=== PATIENT | male | born 1950 | race Hispanic/Latino ===

== ENCOUNTER 2018-05-25 08:28 | Day surgery (SDC) | payer MEDICARE ==
[~2018-05-25 08:28] MED LIST: ANCEF/STERILE WATER 2 GM/20 ML 2 GM/20 ML SYRINGE IV NR
[2018-05-25 10:20] LABS: Eosinophils # (Auto) 0.1 K/mm3 (0.0-0.4); Eosinophils % (Auto) 0.9 % (0.0-4.3); Monocytes # (Auto) 0.4 K/mm3 (0.0-0.8); Monocytes % (Auto) 5.6 % (0.0-7.3)
[2018-05-25 10:31] LABS: INR 0.92 (0.87-1.13); Partial Thromboplastin Time 24.6 Sec. (24.2-36.6)
[2018-05-25 10:40] LABS: BUN/Creatinine Ratio 15; Blood Urea Nitrogen 17 mg/dL (9-20); Hemolysis Index 0
[2018-05-25 10:58] LABS: Basophils % (Auto) 0.7 % (0.0-1.8); Hematocrit 42.9 % (35.5-45.6); Hemoglobin 14.7 gm/dl (11.8-15.2); Lymphocytes # (Auto) 1.3 K/mm3 (1.2-5.4); Lymphocytes % (Auto) 16.9 % (13.4-35.0); Mean Corpuscular HGB Conc 34 % (32-34); Mean Corpuscular Hemoglobin 32 pg (28-32); Mean Corpuscular Volume 93 fl (84-94); Platelet Count 209 K/mm3 (140-440); Red Blood Count 4.61 M/mm3 (3.65-5.03)
[2018-05-25] MEDS: NACL 0.9% 1000 ML 1,000 ML IV SCH ×2 (11:27→12:10)
[2018-05-25] MEDS ORDERED: HEPARIN/NS 5000 UNIT/500ML(CATH LAB) 1,000 ML IR ONE (12:05)
[2018-05-25] MEDS ORDERED: ANCEF/STERILE WATER 2 GM/20 ML 2 GM/20 ML SYRINGE IV ONE (12:06)
[2018-05-25] MEDS ORDERED: XYLOCAINE 2% INFILTRATI ONE (12:06)
[2018-05-25] MEDS: VERSED ONE ×4 (12:15→13:11)
[2018-05-25] MEDS: SUBLIMAZE ONE ×7 (12:15→14:19)
[2018-05-25] MEDS: APRESOLINE ONE ×3 (12:20→14:13)
[2018-05-25] MEDS: HEPARIN 10,000 UNITS/10 ML ONE ×2 (13:20→14:05)
[2018-05-25] MEDS ORDERED: NACL 0.9% 1000 ML 1,000 ML ONE (13:28)
[2018-05-25] MEDS ORDERED: NITROGLYCERIN SYRINGE 3 ML ONE ×2 (13:33→14:21)
[2018-05-25] MEDS: BENADRYL ONE ×2 (14:05→14:09)
[2018-05-25] MEDS ORDERED: VERSED ONE (14:27)
[2018-05-25] MEDS ORDERED: SUBLIMAZE ONE (14:27)
--- NOTE | 2018-05-25 14:59 | Short Stay Summary ---
Short Stay Documentation Date of service: 05/25/18 Narrative H&P: See H&P - History H&P: obtained from office - Allergies and Medications Current Medications: Allergies No Known Allergies Allergy (Unverified 05/25/18 08:29) Home Medications Medication Instructions Recorded Confirmed Last Taken Type Clopidogrel Bisulfate [Clopidogrel] 75 mg PO DAILY 05/25/18 05/25/18 05/25/18 History Oxycodone HCl/Acetaminophen 1 each PO Q6HR PRN 05/25/18 05/25/18 05/24/18 History [Percocet 7.5/325 mg] Valsartan [Diovan] 160 mg PO DAILY 05/25/18 05/25/18 05/23/18 History Active Medications Cefazolin Sodium (Ancef/Sterile Water 2 Gm/20 Ml) 2 gm in 20 mls @ 80 mls/hr IV PREOP NR; Protocol Stop: 05/25/18 23:59 Last Admin: 05/25/18 12:15 Dose: 20 mls Sodium Chloride (Nacl 0.9% 1000 Ml) 1,000 mls @ 42 mls/hr IV DIRECT MUSTAPHA Last Admin: 05/25/18 12:10 Dose: 42 mls/hr - Brief post op/procedure progress note Date of procedure: 05/25/18 Pre-op diagnosis: PVD with Left Lower Extremity Ulceration Post-op diagnosis: same Procedure: 1. Ultrasound-Guided Antegrade Access Left Common Femoral Artery 2. Ultrasound-guided Retrograde Access Left Posterior Tibial Artery 3. Diagnostic Left Lower Extremity Arteriogram (No Previous Films for Comparison) 4. Atherectomy with Angioplasty of Left SFA and Popliteal Artery with 2.4/3.4 JetStream Atherectomy Catheter and 6 x 150 Lutonix Drug-Coated Balloon in the SFA and 5 x 150 Lutonix Drug-Coated Balloon in the Popliteal Artery 5. Atherectomy with Angioplasty of the Left Anterior Tibial Artery with 2.4/ 3.4 JetStream Atherectomy Catheter and 4 x 80 Lutonix Drug-Coated Balloon and 3 x 220 Balloon 6. Closure of Left Femoral Arteriotomy with 6 Greek Angio-Seal 7. Radiologic Supervision with Interpretation Anesthesia: local, other (IV sedation) Surgeon: EMMY LUNA Estimated blood loss: minimal Pathology: none Condition: stable - Disposition Condition at discharge: Good Disposition: [id number] TO HOME OR SELFCARE Short Stay Discharge Plan Activity: other (no strenuous activity for 24 hours) Wound: remove dressing (24 hours) Follow up with: EMMY LUAN MD [Staff Physician] - 14 Days Prescriptions: Aspirin EC [Aspirin Enteric Coated TAB] 81 mg PO QDAY #90 tablet. Valsartan [Diovan] 160 mg PO DAILY #90 tablet
--- NOTE | 2018-05-25 15:03 | Operative Report ---
Operative Report Operative Report: Date of Procedure: 05/25/2018 Pre-operative Diagnosis: Left Lower Extremity PVD with Ulceration Post-operative Diagnosis: Same Procedure(s): 1. Ultrasound-Guided Antegrade Access Left Common Femoral Artery 2. Ultrasound-guided Retrograde Access Left Posterior Tibial Artery 3. Diagnostic Left Lower Extremity Arteriogram (No Previous Films for Comparison) 4. Atherectomy with Angioplasty of Left SFA and Popliteal Artery with 2.4/3.4 JetStream Atherectomy Catheter and 6 x 150 Lutonix Drug-Coated Balloon in the SFA and 5 x 150 Lutonix Drug-Coated Balloon in the Popliteal Artery 5. Atherectomy with Angioplasty of the Left Anterior Tibial Artery with 2.4/ 3.4 JetStream Atherectomy Catheter and 4 x 80 Lutonix Drug-Coated Balloon and 3 x 220 Balloon 6. Closure of Left Femoral Arteriotomy with 6 [place] Angio-Seal 7. Radiologic Supervision with Interpretation Surgeon: Juan Alberto Gastelum M.D. Continuous Wave Operator: None Anesthesia: Local and IV Sedation EBL: Minimal Counts: Correct Complications: None Condition: Stable Specimen: None Indication: The patient is a 68-year-old male with a history of peripheral vascular disease and a right above-knee amputation. He has had a previous intervention of the left lower extremity and presented to the office with complaints of left lower extremity rest pain as well as a nonhealing ulcer of the left anterior pre- tibial area. He is in need of a diagnostic left lower extremity arteriogram with possible intervention. He was given the risks, benefits, and alternative procedures and consented to the procedure. Angiographic Findings: The left common femoral artery appeared widely patent. The left profunda appeared widely patent. The SFA was diffusely diseased with multiple segments of stenosis very from 30-70%. The popliteal artery was diffusely diseased with multiple segments of stenosis very from 40-60%. The anterior tibial artery was patent at its origin however there was approximately 50% of a 3 cm segment just distal to the origin. There was fair and degrees of stenosis throughout the remainder of the artery and the dorsalis pedis artery occluded in the mid foot however collateral did perfuse remainder of the foot. The tibioperoneal trunk was occluded however the peroneal artery and posterior tibial artery filled through collaterals in the mid calf and were patent but diffusely diseased down to the foot. After intervention the SFA and popliteal artery were widely patent with less than 15% residual stenosis and brisk flow of contrast into the anterior tibial artery which was patent down to the dorsalis pedis artery. The anterior tibial artery had less than 10% residual stenosis and briskly filled the foot and the posterior tibial artery and peroneal arteries didn't collaterals. Description of Procedure: The patient was brought to the slabbing machine operator and laid in supine position. After he was adequately sedated his bilateral groins were prepped and draped in normal sterile fashion. Additionally his left foot was prepped and draped in the normal sterile fashion. Ultrasound was used to identify his right common femoral artery and the overlying skin and soft tissue was anesthetized with lidocaine. Multiple attempts were used to cannulate the right common femoral artery and although I was able to get trickle flow through the micropuncture needle I was unable to advance the micropuncture wire into the iliac artery was likely indicated that the artery was either severely stenosed or occluded. I eventually abandoned the attempts to get retrograde access and decided to perform antegrade access on the left. Ultrasound was used to identify the left common femoral artery and the overlying skin and soft tissue was anesthetized with lidocaine. A small stab incision was made and micropuncture technique was used ultrasound guidance to access the left common femoral artery in antegrade fashion. A 0.035 J-wire was advanced into the left superficial femoral artery and a 5 [place] sheath was placed by Seldinger technique. The left lower extremity arteriogram was then performed with the previously described findings. The 5 [place] sheath was then exchanged for a 7 [place] 11 cm sheath and at this point the patient was systemically heparinized with 5000 units of heparin IV. With the use of a 5 [place] Navicross Catheter and an 0.035 Advantage Wire I was able to traverse all areas of stenosis and advanced the wire and catheter into the anterior tibial artery. I then exchanged the Advantage wire for a 0.018 V18 wire and was able to advance the wire and catheter through the occluded portions of the dorsalis pedis artery and around the pedal arch and performed angioplasty of the mid and distal anterior tibial artery as well as the dorsalis pedis artery with a 3 x 220 balloon. The result was a patent artery with less than 10% residual stenosis. I then exchanged the V18 wire for a 0.014 Spartacore wire and performed atherectomy of the SFA and popliteal arteries with both blades down and blades up. I then used the atherectomy catheter to perform atherectomy of the proximal anterior tibial artery with the blades down. I followed up by performing prolonged balloon inflation with a 4 x 80 Lutonix Drug-Coated balloon in the proximal anterior tibial artery. I treated the entire popliteal artery using two 5 x 150 Lutonix Drug-Coated Balloon and the entire SFA using two 6 x 150 Lutonix Drug-Coated Balloons. The result was less than 15% residual stenosis in the SFA and popliteal arteries and less than 10% residual stenosis in the anterior tibial artery. I then used the ultrasound to attempt and a 5 the posterior tibial artery at the level of the medial malleolus. I anesthetized the skin and soft tissue and used micropuncture technique to access the artery in retrograde fashion. I advanced a 0.018 V18 wire and the Navicross catheter to the level of the occlusion approximately 3 cm from the tibial peroneal trunk. I made multiple attempts to cross the occlusion without success. I decided to abandon attempts as the flow appeared to be adequate to heal his wounds. I removed the wire and catheter and held pressure to achieve hemostasis. I used a 6 [place] Angio-Seal to close mild left femoral arteriotomy. The patient tolerated the procedure well. All sponge, needle, and instrument counts were correct. The patient was taken to the recovery area in stable condition.
[2018-05-25 16:37] VITALS: BP 133/63
== END 2018-05-25 16:55 | disposition home or self-care (01) ==
LOC: CATHLABREC 08:28
PROVIDERS: ATTEND Surgery Vascular Surgery
DX: I70.245 Atherosclerosis of native arteries of left leg with ulceration of other part of foot (principal); L97.829 Non-pressure chronic ulcer of other part of left lower leg with unspecified severity; F17.200 Nicotine dependence, unspecified, uncomplicated; Z79.01 Long term (current) use of anticoagulants; Z79.82 Long term (current) use of aspirin; Z79.899 Other long term (current) drug therapy; Z89.611 Acquired absence of right leg above knee; Z98.890 Other specified postprocedural states
CPT/HCPCS: 36415; 37225; 37229; 75710; 80048; 85025; 85610; 85730; 99156; 99157; C1724; C1725; C1760; C1769; C1887; C1894; C2623; J0360; J0690; J1200; J1644; J2250; J3010; J7030; 76937; Q9967